=== PATIENT | female | born 1960 | race African-American/Black ===

== ENCOUNTER 2022-06-06 04:10 | Emergency (ER) | payer OTHER ==
[~2022-06-06] VITALS: Ht 160 cm; Wt 70.5 kg
[~2022-06-06 04:10] MED LIST: ASPI-891 PO; CARV6 PO; CYCL-448 PO; FURO20 PO; NAPR-1024 PO; RAMI2.5C55 PO; VICOT AD
[2022-06-06] MEDS ORDERED: METF-1211 PO (04:20)
[2022-06-06] MEDS ORDERED: LOSA-382 PO (04:20)
[2022-06-06] MEDS ORDERED: ATOR10TA84 PO (04:20)
[2022-06-06] MEDS ORDERED: 0.9% SODIUM CHLORIDE 10 ML SYRINGE IVP PRN (06:15)
[2022-06-06] MEDS ORDERED: ACETAMINOPHEN 1000 MG/ISO-OSM 100 ML IV ONE (06:15)
[2022-06-06] MEDS ORDERED: MORPHINE SULFATE 2 MG/ML SYRINGE IVP ONE ×3 (06:45→13:30)
[2022-06-06 07:08] LABS: COVID AG,FIA SOURCE NASOPHARYNGEAL
[2022-06-06] MEDS ORDERED: SODIUM CHLORIDE 0.9% 100 ML ONE (07:50)
[2022-06-06] MEDS ORDERED: IOHEXOL 350 MG/ML 100 ML VIAL ONE (07:50)
[2022-06-06 07:56] LABS: BASOPHILS % (AUTO) 0.5 % (0.0-2.0); EOSINOPHILS % (AUTO) 0.6 % (1.0-6.0); HEMATOCRIT 31.4 % (36-46); HEMOGLOBIN 9.9 g/dL (12.0-16.0); LYMPHOCYTES # (AUTO) 1.1 K/uL (1.0-4.8); LYMPHOCYTES % (AUTO) 7.3 % (22.0-44.0); MEAN CORPUSCULAR HEMOGLOBIN 25.2 pg (26.0-34.0); MEAN CORPUSCULAR HGB CONC 31.5 G/dL (31.0-37.0); MEAN CORPUSCULAR VOLUME 80 fL (80-100); MONOCYTES % (AUTO) 6.5 % (2.0-9.0); NEUTROPHILS # (AUTO) 13.2 K/uL (1.8-7.7); NEUTROPHILS % (AUTO) 85.1 % (40.0-70.0); PLATELET COUNT (AUTO) 301 K/uL (150-450); RED BLOOD CELL COUNT(AUTO) 3.92 MIL/uL (4.00-5.20)
[2022-06-06 07:59] LABS: INFLUENZA TYPE A NEGATIVE FOR TYPE A (NEGATIVE); INFLUENZA TYPE B NEGATIVE FOR TYPE B (NEGATIVE)
[2022-06-06 08:08] LABS: ANION GAP 10 mmol/L (8-16); CALCIUM, TOTAL 9.8 mg/dL (8.8-10.5); CARBON DIOXIDE 25 mmol/L (22-29); CHLORIDE 99 mmol/L (98-107); CREATININE 0.77 mg/dL (0.60-1.30); GLUCOSE,RANDOM 110 mg/dL (70-110); POTASSIUM 3.7 mmol/L (3.5-5.1); SODIUM SERUM 134 mmol/L (136-145); UREA NITROGEN, BLOOD 9 mg/dL (7-18)
[2022-06-06 08:13] LABS: ALANINE AMINOTRANSFERASE 22 U/L (12-78); ALBUMIN 3.4 g/dL (3.4-5.0); ALKALINE PHOSPHATASE 114 U/L (46-116); ASPARTATE AMINOTRANSFERASE 18 U/L (15-37); BILIRUBIN,TOTAL 0.4 mg/dL (0.1-1.0); CREATINE KINASE, TOTAL ONLY 43 U/L (26-192); TOTAL PROTEIN, SERUM 9.3 g/dL (6.4-8.2)
[2022-06-06 08:15] LABS: GLOMERULAR FILTR. RATE CALC > 60 mL/min (>60)
[2022-06-06 08:18] LABS: B-TYPE NATRIURETIC PEPTIDE 239 pg/mL (0-100)
[2022-06-06 08:19] LABS: LACTIC ACID 0.7 mmol/L (0.4-2.0)
[2022-06-06 08:38] LABS: APPEARANCE,URINE CLEAR (CLEAR); BILIRUBIN,URINE NEGATIVE (NEGATIVE); GLUCOSE, URINE (UA) NEGATIVE (NEGATIVE); KETONES,URINE NEGATIVE (NEGATIVE); LEUKOCYTE ESTERASE ,URINE NEGATIVE (NEGATIVE); NITRATE,URINE NEGATIVE (NEGATIVE); OCCULT BLOOD,URINE NEGATIVE (NEGATIVE); PROTEIN,URINE NEGATIVE (NEGATIVE); SPECIFIC GRAVITIY, URINE 1.016 (1.003-1.030); UROBILINOGEN,URINE <=1.0 mg/dL (<=1.0)
[2022-06-06] MEDS ORDERED: KETOROLAC TROMETHAMINE 30 MG/ML VIAL IVP ONE (09:30)
[2022-06-06] MEDS ORDERED: LEVOFLOXACIN 750 MG/D5% WATER 150 ML IV ONE (11:15)
[2022-06-06] MEDS ORDERED: SODIUM CHLORIDE 0.9% 500 ML IV ONE (12:30)
[2022-06-06 14:20] VITALS: BP 142/69
== END 2022-06-06 14:31 | disposition short-term general hospital (02) ==
LOC: EMS 04:12
DX: K81.0 Acute cholecystitis (principal); Z20.822 Contact with and (suspected) exposure to COVID-19; E11.9 Type 2 diabetes mellitus without complications; N20.0 Calculus of kidney; E78.5 Hyperlipidemia, unspecified; E78.00 Pure hypercholesterolemia, unspecified; I11.0 Hypertensive heart disease with heart failure; I50.9 Heart failure, unspecified; I25.10 Atherosclerotic heart disease of native coronary artery without angina pectoris; M79.7 Fibromyalgia; Z87.442 Personal history of urinary calculi; Z88.0 Allergy status to penicillin
CPT/HCPCS: 99285; 74177; 96365; 76700; 71045; 96375; 96367; 96361; 87426; 80053; 81003; 82550; 82962; 83605; 83880; 84484; 85025; 87040; 87804; 36415; 93005; 96376; 84145; J1885; J2270; J1956; Q9967; J7050; J7040; J0131